=== PATIENT | female | born 1950 | race Asian ===

== ENCOUNTER 2018-11-25 11:43 | Emergency (ER) | payer MEDICAID ==
[~2018-11-25] VITALS: Ht 162.6 cm; Wt 63.6 kg
[2018-11-25 12:23] LABS: BASOPHILS % (AUTO) 1.1 % (0.0-2.0); EOSINOPHILS % (AUTO) 2.7 % (1.0-6.0); LYMPHOCYTES # (AUTO) 1.4 K/uL (1.0-4.8); LYMPHOCYTES % (AUTO) 23.5 % (22.0-44.0); MEAN CORPUSCULAR HEMOGLOBIN 29.1 pg (26.0-34.0); MEAN CORPUSCULAR HGB CONC 32.5 G/dL (31.0-37.0); MEAN CORPUSCULAR VOLUME 90 fL (80-100); MONOCYTES # (AUTO) 0.4 K/uL (0.1-1.0); MONOCYTES % (AUTO) 7.1 % (2.0-9.0); NEUTROPHILS # (AUTO) 3.9 K/uL (1.8-7.7); NEUTROPHILS % (AUTO) 65.6 % (40.0-70.0); PLATELET COUNT (AUTO) 244 K/uL (150-450); RED BLOOD CELL COUNT(AUTO) 4.13 MIL/uL (4.00-5.20); RED CELL DISTRIBUTION WIDTH 14.8 % (11.5-14.5)
[2018-11-25] MEDS ORDERED: SODIUM CHLORIDE 0.9% 1,000 ML IV ONE (12:30)
[2018-11-25] MEDS ORDERED: DEXAMETHASONE SOD PHOS 4 MG/ML 5 ML VIAL IVP ONE (12:30)
[2018-11-25 12:45] VITALS: BP 143/84
[2018-11-25 12:45] LABS: INR 1.1 (0.9-1.1); PROTHROMBIN TIME 11.3 SEC (9.4-11.6)
[2018-11-25 13:25] LABS: CALCIUM, TOTAL 8.6 mg/dL (8.8-10.5); CREATININE 1.06 mg/dL (0.60-1.30); POTASSIUM 3.3 mmol/L (3.5-5.1)
[2018-11-25 13:29] LABS: ALBUMIN 3.4 g/dL (3.4-5.0); BILIRUBIN,TOTAL 0.7 mg/dL (0.1-1.0); MAGNESIUM 1.9 mg/dL (1.80-2.40); TOTAL PROTEIN, SERUM 7.4 g/dL (6.4-8.2)
== END 2018-11-25 13:00 | disposition short-term general hospital (02) ==
LOC: EMS 11:44
DX: R06.03 Acute respiratory distress (principal); R06.1 Stridor; R09.02 Hypoxemia; E07.89 Other specified disorders of thyroid
CPT/HCPCS: 36415; 71045; 80053; 82550; 82948; 83735; 85025; 85610; 93005; 96374; 99291; J1100